=== PATIENT | female | born 1995 | race Caucasian/White ===

== ENCOUNTER 2019-09-24 09:57 | Emergency (ER) | payer OTHER, SELFPAY ==
--- NOTE | 2019-09-24 10:00 | US_ITS ---
WS: [id number] OB ultrasound, 09/24/2019 Clinical Data: 17 wks/cramping Comparison: OB ultrasound, 09/05/2019. Findings: There is a single intrauterine in the vertex presentation. The placenta is fundal and grade 0. There is a normal amount of amnionic fluid. The heart rate is 164 beats per minute. The ant erior aspect of the amnion there may be a amniotic band. The extremities are not impinged by th is band. Measurements of growth and development: BPD: 3.0 cm HC: 11.3 cm AC: 9.4 cm FL: 1.7 cm The estimated weight is 120 or approximately 4 ounces The estimated gestational age is 15w2d wi th an ALEX of approximately 03/15/2020. US/ OB limited [id number] Impression: 1. Single intrauterine in vertex presentation. 2. Estimated gestational age 15w2d with an ALEX of 03/15/2020. 3. heart rate 164 beats per minute. 4. Possible amniotic band which does not encircle the extremities. This is seen best on image 24 of 33.
--- NOTE | 2019-09-24 10:01 | W.ED.FEMALGU ---
HPI - Female Genitourinary General: Chief complaint: Abdominal Pain Stated complaint: 17 weeks preg/cramps Time Seen by Provider: 09/24/19 10:01 Source: patient Mode of arrival: ambulatory Limitations: no limitations History of Present Illness: HPI Narrative: pt is 17 wks here for cramping and light spotting; was seen here a few wks ago for same and found to have live IUP with subchorionic hemorrhage; she subsequently followed up with an OB doctor since then in [place] Onset (ago): week(s) Quality of pain: cramping Vaginal discharge: none Vaginal bleeding: scant Exacerbating factors: none Relieving factors: none Associated symptoms: Reports no associated symptoms; Deny abdominal pain or nausea Treatment prior to arrival: none Patient : Yes Review of Systems Const: Denies: fever or chills GI: Denies: abdominal pain, nausea, vomiting or diarrhea : Reports: vaginal bleeding and pelvic pain; Denies: flank pain, difficulty urinating, painful urination, urinary frequency, urinary urgency or urinary hesitancy PFSH ED PFSH: Statuses (acute, chronic, etc) shown below reflect problem list status as previously entered and may not be historically accurate Social History Smoking and tobacco status: never smoked Physical Exam Const: COMMON NORMALS: no apparent distress, average body habitus, oriented x3, healthy appearing, alert and well nourished GI: COMMON NORMALS: normal to inspection, nondistended, normoactive bowel sounds, soft to palpation, non-tender, no hepatosplenomegaly and no masses PALPATION: Yes soft and Yes no hepatosplenomegaly OTHER: gravid uterus : COMMON NORMALS: Yes no CVA tenderness BLADDER/KIDNEY EXAM: Yes no CVA tenderness Back/Pelvis: COMMON NORMALS: no CVA tenderness Neuro: COMMON NORMALS: oriented x3 SENSORIUM/ORIENTATION: Yes alert Skin: COMMON NORMALS: no rashes or lesions noted GENERAL SKIN EXAM: no rashes or lesions noted MDM - Female MDM Narrative: Medical decision making narrative: I was in with another critical pt and when I came out, RN informed me that pt had eloped from ED; she was not able to be given any information or follow up needs as again she left w/o telling anyone Imaging Data: US: Radiologist's impression: [address] [address] Ultrasound Report Signed Patient: Phuc Feldman Unit #: [id number] : [id number] Age/Sex: 24 / F ADM Date: 09/24/19 Loc: ER Room/Bed: Attending Dr: Ordering Provider/Ordering MD: Funmilayo Adler Date of Service: 09/24/19 Procedure(s): OB limited 11870 Accession Number(s): [id number] Report Number: [id number] WS: [id number] OB ultrasound, 09/24/2019 Clinical Data: 17 wks/cramping Comparison: OB ultrasound, 09/05/2019. Findings: There is a single intrauterine in the vertex presentation. The placenta is fundal and grade 0. There is a normal amount of amnionic fluid. The heart rate is 164 beats per minute. The anterior aspect of the amnion there may be a amniotic band. The extremities are not impinged by this band. Measurements of growth and development: BPD: 3.0 cm HC: 11.3 cm AC: 9.4 cm FL: 1.7 cm The estimated weight is 120 or approximately 4 ounces The estimated gestational age is 15w2d with an ALEX of approximately 03/15/2020. / OB limited [id number] Impression: 1. Single intrauterine in vertex presentation. 2. Estimated gestational age 15w2d with an ALEX of 03/15/2020. 3. heart rate 164 beats per minute. 4. Possible amniotic band which does not encircle the extremities. This is seen best on image 24 of 33. Dictated By: Alexandra Dupree MD Signed By: Alexandra Dupree MD Signed Date/Time: 09/24/19 1058 DD/ 1044 Discharge Plan Discharge Patient Disposition: Left Against Medical Advice Referrals: [facility] [Other] Discharge Date/Time: 09/24/19 11:57 Coding Level of Care Code ED [employer] Vertical for Ana Dimas
[2019-09-24 10:02] VITALS: BP 113/68; PULSE 108; RESP 16; TEMP 36.6; O2SAT 99; BMI 17.4
[2019-09-24 10:22] LABS: Basophils % 0.2 %; Eosinophils % 0.5 %; Hematocrit 38.3 % (37.0-47.0); Hemoglobin 12.7 g/dL (11.5-15.3); Lymphocytes # 1.2 10^3/uL (0.8-4.8); Lymphocytes % 20.4 %; Mean Corpuscular HGB Conc 33.2 g/dL (30.0-36.0); Mean Corpuscular Hemoglobin 28.9 pg (28.0-34.0); Mean Corpuscular Volume 87.2 fL (81-99); Mean Platelet Volume 9.8 fL (7.4-10.4); Monocytes # 0.4 10^3/uL (0.2-0.9); Monocytes % 7.3 %; Neutrophils # 4.3 10^3/uL (1.8-7.7); Neutrophils % 71.4 %; Nucleated Red Blood Cells % 0 %; Platelet Count 269 10^3/cmm (130-400); Red Blood Count 4.39 10^6/uL (4.1-5.3); Red Cell Distribution Width 13.1 % (12.1-15.1)
[2019-09-24 10:49] LABS: Alanine Aminotransferase 7 U/L (0-33); Alkaline Phosphatase 53 IU/L (35-105); Anion Gap 12.9 (5-19); Aspartate Amino Transferase 13 U/L (0-32); Blood Urea Nitrogen 6 mg/dL (6-20); Calcium 9.6 mg/Dl (8.6-10.0); Carbon Dioxide 26 mmol/L (22-29); Chloride 102 mmol/L (98-107); Glomerular Filtration Rate 152.9 mL/min (90-130); Glucose 81 mg/dL (74-109); Potassium 3.9 mmol/L (3.5-5.1); Sodium 137 mmol/L (136-145); Total Bilirubin 0.3 mg/dL (0.15-1.2)
[2019-09-24 11:36] LABS: Add Urine Microscopic? YES; Bilirubin Urine Neg (NEGATIVE); Blood Urine Neg (Negative); Glucose Urine UA Norm (Normal); Ketones Urine Negative (Negative); Leukocyte Esterase Urine 1+ (Negative); Nitrate Urine Negative (Negative); Protein Urine Neg (Negative); Specific Gravity, Urine 1.015 (1.005-1.030); Sulfosalicylic Acid Urine Negative; Urine Appearance Hazy (CLEAR); Urine Color Yellow (Yellow); Urobilinogen Urine Norm (Negative); pH Urine 9 (5-7)
[2019-09-24 11:46] LABS: Bacteria Urine 1+; WBC Urine 15-25 /hpf (0-5)
[2019-09-24 11:47] LABS: Add Urine Culture? No
--- NOTE | 2019-09-24 11:51 | PC.NURSE ---
Patient eloped from ED. Not found in room. All personal belongings are gone.
== END 2019-09-24 11:57 | disposition left against medical advice (07) ==
PROVIDERS: Emergency Provider Physician Assistant
DX: R10.9 Unspecified abdominal pain (principal); Z53.21 Procedure and treatment not carried out due to patient leaving prior to being seen by health care provider
CPT/HCPCS: 36415; 76815; 80053; 81003; 84702; 85025; 99282; 99283; A9270

== ENCOUNTER 2019-09-30 18:43 | Emergency (ER) | payer OTHER, SELFPAY | END 2019-09-30 18:50 | disposition left against medical advice (07) | LOC: ER 10-14 11:14 | PROVIDERS: Emergency Provider Family Medicine | DX: Z53.21 Procedure and treatment not carried out due to patient leaving prior to being seen by health care provider (principal) | CPT/HCPCS: 99281 ==

== ENCOUNTER → 2019-10-22 08:32 | Outpatient (BNVA) | payer OTHER, SELFPAY | PROVIDERS: Visit Provider Counselor Professional | DX: F41.1 Generalized anxiety disorder (principal); F33.0 Major depressive disorder, recurrent, mild | CPT/HCPCS: 90834 ==